=== PATIENT | female | born 1995 | race Caucasian/White ===

== ENCOUNTER 2023-04-28 17:12 | Outpatient (REF) | payer SELFPAY ==
--- NOTE | 2023-04-28 17:30 | CRLHL7_ITS ---
For Patients: As a result of the Century Cures Act, medical imaging exams and procedure reports are released immediately into your electronic medical record. You may view this report before your referring provider. If you have questions, please contact your health care provider. INDICATION: Epilepsy. TECHNIQUE: Multiplanar multisequence MR imaging acquired through the brain without intravenous contrast as a seizure protocol. COMPARISON: None. FINDINGS: The ventricles and sulci are within normal limits for patient age. No mass effect or midline shift. Punctate FLAIR hyperintensity within the subcortical white matter of the left superior frontal gyrus (series 4, image 37), nonspecific. The hippocampal formations are symmetric in size and signal intensity. No evidence for cortical dysplasia, cortical encephalomalacia, encephalocele, or arellano matter heterotopia. No intracranial hemorrhage or pathologic extra-axial fluid collection. No diffusion restriction to suggest acute infarction. Partially empty sella The major arterial flow voids of the skullbase are preserved. The globes are symmetric. Mild paranasal sinus mucosal thickening. The mastoid air cells are clear. IMPRESSION: 1. No acute intracranial abnormality. 2. No cortical structural or migration abnormality. 3. Punctate FLAIR hyperintensity in the left superior frontal gyrus, nonspecific though most typical for sequelae of migraine headaches or minimal chronic microvascular change. 4. Partially empty sella may represent an anatomic variant, though raises the possibility of idiopathic intracranial hypertension in an appropriate clinical setting. Dictated by Blas Guzmán MD @ 04/29/2023 10:55:27 AM (Electronically Signed)
== END 2023-04-28 17:13 | disposition home or self-care (01) ==
LOC: MRI 17:12
PROVIDERS: PCP Family Medicine; Visit Provider Family Medicine
DX: G40.909 Epilepsy, unspecified, not intractable, without status epilepticus (principal)
CPT/HCPCS: 70551; T1013

== ENCOUNTER 2024-04-12 16:01 | Outpatient (CLI) | payer MEDICAID, SELFPAY ==
--- NOTE | 2024-04-12 16:15 | CRLHL7_ITS ---
For Patients: As a result of the Cures Act, medical imaging exams and procedure reports are released immediately into your electronic medical record. You may view this report before your referring provider. If you have questions, please contact your health care provider. HISTORY: Dating and viability COMPARISON: None available of this gestation. TECHNIQUE: Transvaginal ultrasound examination of the early was performed. FINDINGS: A single intrauterine gestational sac is seen with a pole. The crown-rump length measurement of 0.8 cm gives an estimated gestational age of 6 weeks 5 days with an estimated date of delivery of 12/01/2024. This correlates well with the LMP of 02/17/2024 which gives a clinical age of 7 weeks 6 days. Regular cardiac activity is seen at 163 BPM. There is a small subchorionic hemorrhage inferior to the gestational sac measuring 0.2 x 0.7 x 0.6 centimeters. There is no sign of free fluid in the pelvis. There is a simple cyst in the right ovary measuring 2.5 x 1.9 x 2.7 centimeters. The ovaries are otherwise normal in appearance. IMPRESSION: 1. Single intrauterine gestation with estimated age of 6 weeks 5 days. 2. Regular cardiac activity is seen. 3. Tiny subchorionic hemorrhage, unlikely to be of clinical significance. 4. Simple cysts seen in the right ovary measuring up to 2.7 centimeters in diameter requiring no further follow-up. Dictated by Himanshu Sapp MD @ 04/13/2024 10:36:16 AM (Electronically Signed)
== END 2024-04-12 16:02 | disposition home or self-care (01) ==
LOC: US 16:01
PROVIDERS: PCP Family Medicine; Visit Provider Advanced Practice Midwife
DX: O20.9 Hemorrhage in early pregnancy, unspecified (principal); O34.81 Maternal care for other abnormalities of pelvic organs, first trimester; Z3A.01 Less than 8 weeks gestation of pregnancy; N83.201 Unspecified ovarian cyst, right side
CPT/HCPCS: 76817

== ENCOUNTER 2024-04-13 15:00 | Outpatient (CLI) | payer MEDICAID, SELFPAY | END 2024-04-13 15:01 | disposition home or self-care (01) | PROVIDERS: PCP Family Medicine; Visit Provider Advanced Practice Midwife | DX: Z34.91 Encounter for supervision of normal pregnancy, unspecified, first trimester (principal); Z3A.08 8 weeks gestation of pregnancy | CPT/HCPCS: 83021; 86592; 86703; 86704; 86706; 86762; 86787; 86803; 86850; 86900; 86901; 87086; 87340 ==

== ENCOUNTER 2024-05-09 14:35 | Outpatient (CLI) | payer MEDICAID, SELFPAY ==
--- NOTE | 2024-05-09 14:45 | CRLHL7_ITS ---
For Patients: As a result of the Century Cures Act, medical imaging exams and procedure reports are released immediately into your electronic medical record. You may view this report before your referring provider. If you have questions, please contact your health care provider. INDICATION: No heart tones Comparison ultrasound 04/12/2024 TECHNIQUE: Real-time arellano-scale imaging of the pelvis was performed. FINDINGS: Sonographic imaging demonstrates a single intrauterine gestation. [place]-rump length measures 1.9 cm corresponding to 8 weeks 3 days with ZEN of 11/16/2024. No cardiac activity detected. IMPRESSION: 1. Intrauterine gestation at 8 weeks 3 days without cardiac activity detected when previously documented. Findings reflect failed . Dictated by Brianne Witt MD @ 05/09/2024 3:20:28 PM (Electronically Signed)
== END 2024-05-09 14:36 | disposition home or self-care (01) ==
LOC: US 14:36
PROVIDERS: PCP Family Medicine; Visit Provider Obstetrics & Gynecology
DX: O36.8310 Maternal care for abnormalities of the fetal heart rate or rhythm, first trimester, not applicable or unspecified (principal); Z3A.08 8 weeks gestation of pregnancy
CPT/HCPCS: 76816; 76817

== ENCOUNTER 2024-05-11 06:27 | Day surgery (SDC) | payer MEDICAID, SELFPAY ==
[2024-05-11] MEDS: DOXYCYCLINE HYCLATE 100 MG 200 MG PO (06:06)
[2024-05-11 06:38] VITALS: BMI 27.2
[2024-05-11 06:45] VITALS: BP 101/65; PULSE 70; RESP 20; TEMP 37; O2SAT 98
[2024-05-11] MEDS: 0.9 % SODIUM CHLORIDE 500 ML 500 ML 50 ML IV (07:09)
--- NOTE | 2024-05-11 07:32 | W.PM.H&PU ---
History & Physical Update History & Physical Update H&P Reviewed and patient assessed: No changes noted
[2024-05-11] MEDS: LIDOCAINE 1% MDV 20 ML INJECTION (07:50)
[2024-05-11] MEDS: SILVER NITRATE APPLICATOR 1 EACH STICK..EA. TOPICAL (08:00)
--- NOTE | 2024-05-11 08:18 | W.ANESCHARGE ---
Anesthesia Charges Start Date/Time Anesthesia Start Date: 05/11/24 Anesthesia Start Time: 07:23 Stop Date/Time Anesthesia Stop Date: 05/11/24 Anesthesia Stop Time: 08:18
[2024-05-11 08:20] VITALS: BP 99/66; PULSE 68; RESP 20; TEMP 36.3; O2SAT 97
[2024-05-11 08:35] VITALS: BP 103/65; PULSE 62; RESP 20; O2SAT 98
--- NOTE | 2024-05-11 08:39 | W.ANESCHARGE ---
Anesthesia Charges Start Date/Time Anesthesia Start Date: 05/11/24 Anesthesia Start Time: 07:23 Stop Date/Time Anesthesia Stop Date: 05/11/24 Anesthesia Stop Time: 08:18
[2024-05-11 09:00] VITALS: BP 104/67; PULSE 60; RESP 20; TEMP 36.7; O2SAT 98
--- NOTE | 2024-05-11 09:30 | SUR.PHASEII ---
interpretor assisted with dc instructions
--- NOTE | 2024-05-11 10:22 | W.PM.GYNPROC ---
Procedure Note Date of procedure: 05/11/24 Will [facility] bill your pro fee for this procedure?: Yes Pre-op diagnosis: Missed at 8 weeks, 3 days gestation Post-op diagnosis: Same Procedure: Suction uterine curettage Anesthesia: MAC and local Complications: Bleeding from left anterior cervix near tenaculum puncture site, requiring a single rlyxkr-hs-rwzaq suture of 2-0 Vicryl Surgeon: Francine Mooney MD Estimated blood loss (mL): 20 IV fluids (mL): 400 Urine Output (mL): 20 Pathology: specimen obtained, sent to pathology (products of conception) Condition: stable Disposition: same day Findings: Findings: 1. Exam under anesthesia revealed a mobile, anteverted uterus that was consistent in size with 8 weeks' gestation. There are no palpable adnexal masses. 2. Moderate amount of products of conception returned with suction curettage. Procedure Description: Procedure in detail: Patient was taken to the operating with IV running. She had received a single oral dose of doxycycline in preoperative prophylaxis. She was placed in dorsal lithotomy position. Monitored anesthesia care was administered. She was prepped and draped in the usual sterile fashion. Her bladder was straight catheterized. Exam under anesthesia was performed for the above-noted findings. Speculum was inserted. Cervix was grasped along its anterior lip, first with an Allis clamp, and next with a single-toothed tenaculum; both of these were replaced multiple times due to pulling through the anterior cervical lip. Paracervical block was performed with a total of 10 mL of 1% lidocaine. The cervix was serially dilated to 9 [place]ish. A size 8 rigid suction cannula was then passed through the cervix to the uterine fundus. Suction was applied, and the suction cannula was withdrawn along the path of insertion. This was repeated several more times, with obvious return of products of conception. Thereafter, sharp curettage was performed circumferentially, and a gritty texture was noted throughout. Minimal tissue was obtained with curettings. Procedure was deemed complete. The tenaculum was removed from the anterior lip the cervix. Persistent bleeding was noted along the left tenaculum puncture site, which was ultimately addressed with a single edmjnr-zn-azcbe suture of 2-0 Vicryl. The speculum was then removed from the vagina. Patient tolerated procedure well and was taken recovery area in stable condition.
== END 2024-05-11 09:32 | disposition home or self-care (01) ==
PROVIDERS: Visit Provider Obstetrics & Gynecology
PROC: (CPT 59820; principal; 2024-05-11 07:15)
DX: O02.1 Missed abortion (principal)
CPT/HCPCS: 59820; 00940; 01965; 36415; 86850; 86900; 86901; 88305; J2003; T1013; A9270; J1885; J2250; J2405; J2704; J3010; J7030

== ENCOUNTER 2024-05-26 11:33 | Outpatient (CLI) | payer MEDICAID, SELFPAY | END 2024-05-26 11:34 | disposition home or self-care (01) | LOC: NFLDREF 11:35 | PROVIDERS: Visit Provider Obstetrics & Gynecology | DX: R30.0 Dysuria (principal) | CPT/HCPCS: 87086 ==

== ENCOUNTER 2025-03-14 16:05 | Outpatient (CLI) | payer BC, SELFPAY ==
[2025-03-14 22:13] LABS: Bacterial Vaginosis* Negative (Negative); Candida glab/krus NOT DETECTED (No Detected)
[2025-03-14 22:43] LABS: Chlamydia DNA Amplified* NOT DETECTED (No Detected); GC DNA Amplified* NOT DETECTED (No Detected)
== END 2025-03-14 16:06 | disposition home or self-care (01) ==
PROVIDERS: Visit Provider Registered Nurse
DX: N89.8 Other specified noninflammatory disorders of vagina (principal); R39.9 Unspecified symptoms and signs involving the genitourinary system
CPT/HCPCS: 81513; 87086; 87481; 87491; 87591; 87661

== ENCOUNTER 2025-03-18 08:36 | Emergency (ER) | payer BC, SELFPAY ==
--- OUTSIDE RECORDS SUMMARY | 2025-03-18 08:38 | XMS_ITS | Clinical Summary ---
Author Organization [employer] [facility] Address [address] [place] [address] Care Team Providers Care Accountant Cost Name Role Phone Heather Gomez RN, OVERLOCK WAISTLINE JOINER Primary Care Provide r Allergies No known active allergies Medications No known medications Active Problems Problem Noted Date Diagnosed Date Pap smear for cervical cancer screening 04/16/20 Overview (04/16/2023): 03/2023 NIL/HPV Negative Plan: Pap and HPV due 03/2028 Annual physical exam 04/06/2023 Family History Medical History Relation Name Comments Good Health Father Good Health Mother Relation Name Status Comments Father Mother Social History Tobacco Use Types Packs/Day Years Used Date Smoking Tobacco: Never Smokeless Tobacco: Never Tobacco Cessation:Counseling Given: Not Answered Social Connections Answer Date Recorded Frequency of Communication with Friends and Fami ly Not on file 04/05/2023 Comments No Sex and Gender Information Value Date Recorded Sex Assigned at Not on file Legal Sex Female 10:46 AM CDT Gender Identity Not on file Sexual Orientation Not on file Obstetrics History Para Term AB IAB SAB Ectopic Multiple Livin g Live Births 2 2 2 Date Outcome GA Total Labor Labor/2nd/3rd Weight Sex Type Anes PTL Shelley A1 A5 Name Clin Term Term Last Filed Vital Signs Vital Sign Reading Time Taken Comments Blood Pressure 105/68 04/05/2023 9:18 AM CAN LABELER Pulse 76 04/05/2023 9:18 AM CAN LABELER Temperature - - Respiratory Rate - - Oxygen Saturation 98% 04/05/2023 9:18 AM CAN LABELER Inhaled Oxygen Concentration - - Weight 64.4 kg (142 lb) 04/05/2023 9:18 AM CAN LABELER Height 156 cm (5' 1.42) 04/05/2023 9:18 AM CAN LABELER Body Mass Index 26.47 04/05/2023 9:18 AM CAN LABELER Plan of Treatment Health Maintenance Due Date Last Done Comments Tetanus booster 2004 Depression screening for age 12+ 2005 HIV for age 15-65 2008 Hepatitis C screening for ag e 18-79 2011 Hepatitis B series for 19+ ( 1 of 3 - 19+ 3-dose series) 2012 HPV series for age 9-45 (1 - 3-dose SCDM series) 2020 BMI (ht and wt on same day) for age 18+ 04/05/2024 04/05/2023 Influenza Vaccine (#1) 2025 Pap test for age 21-65 04/05/2028 , 04/05/2023 RSV vaccine for adults or (1 - 1-dose 75+ series) 2068 Pneumococcal series for age 6-49 Aged Out No longer eligible b ased on patient's age to complete this topic Procedures Procedure Name Priority Date/Time Associated Diagnosis Comments HPV HIGH RISK Routine 04/05/2023 9:40 AM CAN LABELER Screening for malignant neoplasm of cervix from Last 3 Months or Most Recently Relevant to Health Maintenance Results * HPV HIGH RISK (04/05/2023 9:40 AM CAN LABELER) TYPE 16 Negative Negative 04/08/2023 1:44 PM CAN LABELER [facility] TYPE 18 Negative Negative 04/08/2023 1:44 PM CAN LABELER [facility] OTHER HIGH RISK TYPES Negative Negative 04/08/2023 1:44 PM CAN LABELER [facility] Other (Cervical) Non-Blood / Unknown 04/05/2023 9:40 AM CAN LABELER 04/05/2023 5:18 PM CAN LABELER Narrative [facility] - 04/08/2023 1:44 PM CAN LABELER HPV types 16, 18, 31, 33, 35, 39, 45, 51, 52, 56, 58, 59, 66 and 68 DNA were undetectable or below the pre-set threshold. Methodology: Shawn Garrett 4800 HPV Test us Opal SOLARES MICROBIOLOGY Final Resu lt [place]abble DB [facility] [address] [place] [address], from Last 3 Months or Most Recently Relevant to Health Maintenance Care Teams Accountant Cost Relationship Specialty Start Date End Date Heather Gomez, RN, OVERLOCK WAISTLINE JOINER PCP - General Nurse Practitioner 03/12/23
[2025-03-18 08:44] VITALS: BP 116/77; PULSE 79; RESP 16; TEMP 37; O2SAT 97; BMI 26.4
--- NOTE | 2025-03-18 09:02 | CRLHL7_ITS ---
For Patients: As a result of the Century Cures Act, medical imaging exams and procedure reports are released immediately into your electronic medical record. You may view this report before your referring provider. If you have questions, please contact your health care provider. INDICATION: Spotting. COMPARISON: None available. TECHNIQUE: Endovaginal pelvic ultrasound. FINDINGS: Gestational sac and number: 1 Sac size and shape: Normal shape. No perigestational hemorrhage. Placenta: Not yet developed. Yolk sac: Present. Amniotic fluid: Subjectively normal. heart rate: 121bpm. CRL: 0.4cm. US EGA: 6 weeks 1 day US ZEN: 11/10/2025 LMP ZEN: 11/07/2025 Uterus: No significant uterine findings. Right ovary: Normal. Left ovary: Normal. IMPRESSION: Haynes viable intrauterine with size and dates as above. No findings to explain the clinical history of spotting. Dictated by Leonel Back MD @ 03/18/2025 10:14:15 AM (Electronically Signed)
[2025-03-18 09:52] LABS: Appearance Urine Clear (Clear)
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
== END 2025-03-18 11:09 | disposition home or self-care (01) ==
PROVIDERS: Emergency Provider Emergency Medicine
DX: O26.851 Spotting complicating pregnancy, first trimester (principal); Z3A.01 Less than 8 weeks gestation of pregnancy
CPT/HCPCS: 36415; 76817; 81001; 84702; 87086; 99284

== ENCOUNTER 2025-03-21 15:37 | Emergency (ER) | payer BC, SELFPAY ==
--- OUTSIDE RECORDS SUMMARY | 2025-03-21 15:38 | XMS_ITS | Clinical Summary ---
Author Organization [employer] [facility] Address [address] [place] [address] Care Team Providers Care Directional Driller Name Role Phone Heather Gomez RN, PUNCH HAND Primary Care Provide r Allergies No known [...] Comments Blood Pressure 105/68 04/05/2023 9:18 AM FABRIC SEPARATOR OPERATOR Pulse 76 04/05/2023 9:18 AM FABRIC SEPARATOR OPERATOR Temperature - - Respiratory Rate - - Oxygen Saturation 98% 04/05/2023 9:18 AM FABRIC SEPARATOR OPERATOR Inhaled Oxygen Concentration - - Weight 64.4 kg (142 lb) 04/05/2023 9:18 AM FABRIC SEPARATOR OPERATOR Height 156 cm (5' 1.42) 04/05/2023 9:18 AM FABRIC SEPARATOR OPERATOR Body Mass Index 26.47 04/05/2023 9:18 AM FABRIC SEPARATOR OPERATOR Plan of Treatment Health Maintenance Due Date [...] HPV HIGH RISK Routine 04/05/2023 9:40 AM FABRIC SEPARATOR OPERATOR Screening for malignant neoplasm of cervix from Last 3 Months or Most Recently Relevant to Health Maintenance Results * HPV HIGH RISK (04/05/2023 9:40 AM FABRIC SEPARATOR OPERATOR) TYPE 16 Negative Negative 04/08/2023 1:44 PM FABRIC SEPARATOR OPERATOR [facility] TYPE 18 Negative Negative 04/08/2023 1:44 PM FABRIC SEPARATOR OPERATOR [facility] OTHER HIGH RISK TYPES Negative Negative 04/08/2023 1:44 PM FABRIC SEPARATOR OPERATOR [facility] Other (Cervical) Non-Blood / Unknown 04/05/2023 9:40 AM FABRIC SEPARATOR OPERATOR 04/05/2023 5:18 PM FABRIC SEPARATOR OPERATOR Narrative [facility] - 04/08/2023 1:44 PM FABRIC SEPARATOR OPERATOR HPV types 16, 18, 31, 33, 35, 39, 45, 51, 52, 56, 58, 59, 66 and 68 DNA were undetectable or below the pre-set threshold. Methodology: Shawn Garrett 4800 HPV Test us Opal SOLARES MICROBIOLOGY Final Resu lt [place] [facility] [address] [place] [address], from Last 3 Months or Most Recently Relevant to Health Maintenance Care Teams Directional Driller Relationship Specialty Start Date End Date Heather Gomez, RN, PUNCH HAND PCP - General Nurse Practitioner 03/12/23
[2025-03-21 15:47] VITALS: BP 140/79; PULSE 107; RESP 18; TEMP 37; O2SAT 99; BMI 30.3
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
== END 2025-03-21 17:36 | disposition home or self-care (01) ==
PROVIDERS: Emergency Provider Emergency Medicine
DX: O20.8 Other hemorrhage in early pregnancy (principal); Z3A.01 Less than 8 weeks gestation of pregnancy
CPT/HCPCS: 36415; 76817; 84702; 99284

== ENCOUNTER 2025-03-30 10:03 | Outpatient (CLI) | payer BC, SELFPAY ==
--- NOTE | 2025-03-30 10:15 | CRLHL7_ITS ---
For Patients: As a result of the Century Cures Act, medical imaging exams and procedure reports are released immediately into your electronic medical record. You may view this report before your referring provider. If you have questions, please contact your health care provider. OBSTETRICAL ULTRASOUND TRANSVAGINAL CLINICAL INDICATION: Follow-up subchorionic hemorrhage and viability. LMP: 01/31/2025 ZEN by LMP: 11/07/2025 Gestational age: 8 weeks 2 days Previous ultrasound: Yes, 03/21/2025 ZEN by ultrasound: 11/08/2025 TECHNIQUE: Real-time arellano-scale imaging of the fetus was performed transvaginal. Transvaginal imaging was performed for better visualization of the endometrium and ovaries. FINDINGS: CRL: 1.6 cm, 8 weeks 0 days; ZEN 11/09/2025 heart rate: 165 BPM Gestational sac: 4.1 cm Yolk sac: 3.3 mm, appears within normal limits Right ovary: Within normal limits; 2.9 x 1.6 x 2.3 cm, CL Left ovary: Within normal limits; 2.8 x 1.4 x 2.2 cm IMPRESSION: 1. Single living intrauterine measures 8 weeks 0 days with sonographic due date of 11/09/2025. 2. Resolution of the previously noted subchorionic hemorrhage. 3. Corpus luteal cyst of right ovary measures 1.8 x 1.6 x 1.4 cm. CARLOS ESCALONA M.D. Diagnostic Radiologist [email or web address] Transcribed: 2:[address]/Dictated by: Carlos Escalona MD @ 03/30/2025 1:59:00 PM (Electronically Signed)
== END 2025-03-30 10:04 | disposition home or self-care (01) ==
LOC: US 10:05
PROVIDERS: Visit Provider Physician Assistant
DX: O20.9 Hemorrhage in early pregnancy, unspecified (principal); O34.81 Maternal care for other abnormalities of pelvic organs, first trimester; N83.11 Corpus luteum cyst of right ovary; Z3A.08 8 weeks gestation of pregnancy; O99.351 Diseases of the nervous system complicating pregnancy, first trimester; G40.909 Epilepsy, unspecified, not intractable, without status epilepticus
CPT/HCPCS: 76817; T1013

== ENCOUNTER 2025-03-30 11:26 | Outpatient (CLI) | payer BC, SELFPAY ==
[2025-03-30 16:01] LABS: Chlamydia DNA Amplified* NOT DETECTED (No Detected); GC DNA Amplified* NOT DETECTED (No Detected)
== END 2025-03-30 11:27 | disposition home or self-care (01) ==
PROVIDERS: Visit Provider Physician Assistant
DX: O99.351 Diseases of the nervous system complicating pregnancy, first trimester (principal); G40.909 Epilepsy, unspecified, not intractable, without status epilepticus; Z3A.08 8 weeks gestation of pregnancy
CPT/HCPCS: 80177; 83020; 83021; 85660; 86592; 86703; 86704; 86706; 86762; 86787; 86803; 86850; 86900; 86901; 87086; 87340; 87491; 87591

== ENCOUNTER 2025-04-12 11:27 | Outpatient (CLI) | payer BC, SELFPAY ==
--- NOTE | 2025-04-12 11:30 | CRLHL7_ITS ---
For Patients: As a result of the Century Cures Act, medical imaging exams and procedure reports are released immediately into your electronic medical record. You may view this report before your referring provider. If you have questions, please contact your health care provider. OB ULTRASOUND INDICATION: Follow-up viability. TECHNIQUE: Real time grayscale imaging of the fetus was performed. Transvaginal. Transvaginal imaging performed to better demonstrate the endometrium and ovaries. LMP: 01/31/2025. ZEN by LMP: 11/07/2025. GA: 10 w, 1 d. Previous US: Yes 03/30/2025. ZEN by US: 11/09/2025 and previous 03/01/2025 with ZEN 11/08/2025. CRL: 3.3 cm. 10 w 1 d. ZEN: 11/07/2025. FHR: 165 BPM. Gestational sac: 4.9 cm. Appears within normal limits. Yolk sac: 5.3 mm. Appears within normal limits. Right ovary: Within normal limits. 4.4 x 2.1 x 2.3 cm. CL. Left ovary: Within normal limits. 2.3 x 1.9 x 1.8 cm. IMPRESSION: 1. Single living intrauterine measures 10 weeks 1 day and sonographic due date 11/07/2025. 2. No subchorionic hemorrhage. 3. Corpus luteal cyst right ovary measures 2 cm. Carlos Edge M.D. Diagnostic Radiologist [email or web address] CORBIN/brittanie gu/Dictated by: Carlos Edge MD @ 04/12/2025 12:25:00 PM (Electronically Signed)
== END 2025-04-12 11:28 | disposition home or self-care (01) ==
LOC: US 11:27
PROVIDERS: Visit Provider Physician Assistant
DX: O34.81 Maternal care for other abnormalities of pelvic organs, first trimester (principal); N83.11 Corpus luteum cyst of right ovary; Z3A.10 10 weeks gestation of pregnancy
CPT/HCPCS: 76801; 76817; T1013